=== PATIENT | female | born 1985 | race Caucasian/White ===

== ENCOUNTER 2017-09-08 21:14 | Emergency (ER) | payer OTHER, MEDICAID ==
[~2017-09-08] VITALS: Ht 165.1 cm; Wt 117.9 kg
[2017-09-08] MEDS ORDERED: PREDNISONE 10 M10 MG PO (21:35)
[2017-09-08] MEDS ORDERED: CYCLOBENZAPRINE5 MG PO (21:35)
[2017-09-08] MEDS ORDERED: TRAMADOL 50 MG50 MG PO (21:35)
[2017-09-08 21:57] VITALS: BP 141/91
== END 2017-09-08 22:41 | disposition home or self-care (01) ==
LOC: M.ERS 21:14
DX: M54.12 Radiculopathy, cervical region (principal); M43.6 Torticollis; E66.01 Morbid (severe) obesity due to excess calories

== ENCOUNTER 2017-09-25 09:22 | Emergency (ER) | payer OTHER, MEDICAID ==
[~2017-09-25] VITALS: Ht 165.1 cm; Wt 127.0 kg
[~2017-09-25 09:22] MED LIST: CYCLOBENZAPRINE5 MG PO; PREDNISONE 10 M10 MG PO; TRAMADOL 50 MG50 MG PO
[2017-09-25] MEDS ORDERED: CYCLOBENZAPRINE5 MG PO (13:03)
[2017-09-25] MEDS ORDERED: ACETAMINOPHEN-1 EAC1 PO (13:03)
[2017-09-25] MEDS ORDERED: IBUPROFEN 800800 MG PO (13:03)
[2017-09-25] MEDS ORDERED: AMOXICILLIN875 MG PO (13:04)
[2017-09-25 13:12] VITALS: BP 131/85
== END 2017-09-25 13:13 | disposition home or self-care (01) ==
LOC: M.ERS 09:22
DX: J32.9 Chronic sinusitis, unspecified (principal); E66.01 Morbid (severe) obesity due to excess calories; Z68.42 Body mass index [BMI] 45.0-49.9, adult